=== PATIENT | male | born 1990 | race Two or more races ===

== ENCOUNTER 2018-08-12 17:42 | Emergency (ER) | payer BC, OTHER ==
[~2018-08-12] VITALS: Ht 170.2 cm; Wt 70.3 kg
--- NOTE | 2018-08-12 17:57 | NUR ---
PT A/OX4, PRESENTS TO THE ER C/O GENERALIZED BODY SKIN RASH SINCE LAST NIGHT. UPON ASSESSMENT, GENERALIZED RED BODY RASH NOTED ON BLE, CHEST, ABD. PT REPORTS ITCHINESS AT RASH SITES. VSS. PT DENIES C/P, SOB, N/V/D, DIZZINESS, HEADACHE.
--- NOTE | 2018-08-12 18:50 | NUR ---
JIM SAENZ AT BEDSIDE FOR MSE.
--- NOTE | 2018-08-12 19:07 | NUR ---
SHIFT REPORT GIVEN TO GUSTAVO COPPOLA.
--- NOTE | 2018-08-12 19:12 | NUR ---
Recieved report from Hector COPPOLA, assumed care of pt.,
[2018-08-12] MEDS ORDERED: DEXAMETHASONE SOD PHOSPHATE 4 MG INJ IM ONE (19:15)
[2018-08-12] MEDS ORDERED: diphenhydrAMINE 50 MG CAPSULE PO ONE (19:15)
[2018-08-12] MEDS ORDERED: DEXAMETHASONE SOD PHOSPHATE 4 MG INJ ONE (19:17)
[2018-08-12] MEDS ORDERED: diphenhydrAMINE 50 MG CAPSULE ONE (19:17)
--- NOTE | 2018-08-12 19:25 | NUR ---
Patient discharged to home in stable conditon. Written and verbal after care instructions given. Patient verbalizes understanding of instructions. Pt. d/c w/ prescription per MD order, d/c papers signed, all belongings w/ pt., ID band removed, ambulated off unit w/ steady gait, left in private vehicle, NAD
== END 2018-08-12 19:27 | disposition home or self-care (01) ==
LOC: ER 17:45
DX: L50.9 Urticaria, unspecified (principal)
CPT/HCPCS: 96372; 99283; J1100; Q0163; A4663

== ENCOUNTER 2018-12-01 14:54 | Emergency (ER) | payer MEDICAID ==
[~2018-12-01] VITALS: Ht 170.2 cm; Wt 62.6 kg
--- NOTE | 2018-12-01 15:10 | NUR ---
JIM SAENZ AT BEDSIDE FOR MSE.
[2018-12-01] MEDS ORDERED: BENZONATATE 100 MG CAPSULE ONE (15:14)
[2018-12-01] MEDS ORDERED: BENZONATATE 100 MG CAPSULE PO ONE (15:15)
[2018-12-01 15:28] LABS: BASOPHILS % (AUTO) 0.2 % (0.0-2.0); EOSINOPHILS # (AUTO) 0.5 K/uL (0.0-0.7); EOSINOPHILS % (AUTO) 6.2 % (0.0-7.0); HEMATOCRIT 30.7 % (36.7-47.1); HEMOGLOBIN 10.5 g/dL (12.5-16.3); LYMPHOCYTES # (AUTO) 1.4 K/uL (20.0-40.0); LYMPHOCYTES % (AUTO) 17.5 % (20.5-51.5); MEAN CORPUSCULAR HEMOGLOBIN 33.7 uug (23.8-33.4); MEAN CORPUSCULAR HGB CONC 34 g/dL (32.5-36.3); MEAN CORPUSCULAR VOLUME 98.5 fL (73.0-96.2); MONOCYTES # (AUTO) 0.8 K/uL (2.0-10.0); MONOCYTES % (AUTO) 10.5 % (0.0-11.0); NEUTROPHILS # (AUTO) 5.1 K/uL (1.8-8.9); NEUTROPHILS % (AUTO) 65.6 % (38.5-71.5); PLATELET COUNT (AUTO) 359 K/uL (152-348); RED BLOOD CELL COUNT(AUTO) 3.12 MIL/uL (4.06-5.63); WHITE BLOOD COUNT (AUTO) 7.8 K/uL (3.6-10.2)
[2018-12-01 15:36] LABS: POTASSIUM 3.4 mmol/L (3.5-5.1)
[2018-12-01 15:42] LABS: BILIRUBIN,DIRECT 0.1 mg/dL (0.0-0.2); BILIRUBIN,TOTAL 0.3 mg/dL (0.2-1.0); TOTAL PROTEIN, SERUM 9.4 g/dL (6.4-8.2)
[2018-12-01 15:46] LABS: *BILIRUBIN,URIN NEGATIVE (NEGATIVE); *BLOOD, URINE 1+ (NEGATIVE); *CLARITY,URINE CLEAR (CLEAR); *COLOR,URINE YELLOW (YELLOW); *KETONES,URINE TRACE (NEGATIVE); *UROBILINOGEN,URINE 0.2 E.U./dl (NORMAL); LEUKOCYTE ESTERASE ,URINE NEGATIVE (NEGATIVE); NITRITE, URINE NEGATIVE (NEGATIVE); UGLUCOSE NEGATIVE (NEGATIVE)
[2018-12-01 15:56] LABS: MUCUS,URINE MANY /LPF (0-FEW); WBC,URINE 0-3 /HPF (0-3)
--- NOTE | 2018-12-01 16:14 | NUR ---
JIM SAENZ AT BEDSIDE FOR PT UPDATE.
[2018-12-01 16:25] LABS: BAND % (MANUAL) 10 % (0-10); EOSINOPHILS % (MANUAL) 7 % (0-8); LYMPHOCYTES % (MANUAL) 14 % (20-40); METAMYELOCYTES % 4 % (0-1); MONOCYTES % (MANUAL) 9 % (2-10); NEUTROPHILS % (MANUAL) 56 % (42-75)
--- NOTE | 2018-12-01 17:06 | NUR ---
Patient discharged to home in stable conditon. Written and verbal after care instructions given. Patient verbalizes understanding of instructions. ALL BELONGINGS W/ PT. PT SELF-AMBULATED W/O DIFFICULTY.
[2018-12-01 17:07] VITALS: BP 121/71
== END 2018-12-01 17:08 | disposition home or self-care (01) ==
LOC: ER 14:54
DX: R31.29 Other microscopic hematuria (principal); J20.9 Acute bronchitis, unspecified
CPT/HCPCS: 36415; 76770; 85025; A4663

== ENCOUNTER 2019-08-24 09:29 | Emergency (ER) | payer MEDICAID, OTHER ==
[~2019-08-24] VITALS: Ht 170.2 cm; Wt 69.4 kg
--- NOTE | 2019-08-24 09:40 | NUR ---
PT IS IN ROOM #2B. DR FRIEDMAN EVALUATED THE PT.
[2019-08-24] MEDS ORDERED: SODIUM BICARBONATE 4.2 % (NEUT) 5 ML VIAL TP ONE (09:45)
[2019-08-24] MEDS ORDERED: LIDOCAINE HCL 2% 20 ML VIAL TP ONE (09:45)
[2019-08-24] MEDS ORDERED: LET TOPICAL SOLUTION 8 ML UDC TP ONE (09:45)
[2019-08-24] MEDS ORDERED: SODIUM BICARBONATE 4.2 % (NEUT) 5 ML VIAL ONE (09:50)
[2019-08-24] MEDS ORDERED: LET TOPICAL SOLUTION 8 ML UDC ONE (09:51)
[2019-08-24] MEDS ORDERED: LIDOCAINE HCL 2% 20 ML VIAL ONE (09:51)
--- NOTE | 2019-08-24 10:58 | NUR ---
PT WAS D/C'd TO HOME. D/C INSTRUCTIONS GIVEN TO THE PT BY DR FRIEDMAN.
[2019-08-24 10:59] VITALS: BP 135/78
== END 2019-08-24 11:00 | disposition home or self-care (01) ==
LOC: ER 09:29
DX: L02.214 Cutaneous abscess of groin (principal)
CPT/HCPCS: 10060; 99282; J3490 ×2; A4217; A4663

== ENCOUNTER 2019-08-29 12:00 | Emergency (ER) | payer MEDICAID, OTHER ==
[~2019-08-29] VITALS: Ht 170.2 cm; Wt 68.0 kg
[2019-08-29 12:24] VITALS: BP 115/70
--- NOTE | 2019-08-29 12:24 | NUR ---
Patient discharged to home in stable conditon. Written and verbal after care instructions given. Patient verbalizes understanding of instructions. all belongings w/ pt. pt self-ambulated w/o difficulty.
== END 2019-08-29 12:25 | disposition home or self-care (01) ==
LOC: ER 12:00
DX: L02.214 Cutaneous abscess of groin (principal)
CPT/HCPCS: A4663

== ENCOUNTER 2019-09-25 10:40 | Emergency (ER) | payer OTHER ==
[~2019-09-25] VITALS: Ht 170.2 cm; Wt 70.3 kg
--- NOTE | 2019-09-25 10:52 | NUR ---
Dr Mckenzie at the bedside for MSE.
[2019-09-25] MEDS ORDERED: ONDANSETRON ODT 4 MG TAB.RAPDIS ONE (10:57)
[2019-09-25] MEDS ORDERED: ONDANSETRON ODT 4 MG TAB.RAPDIS SL ONE (11:00)
--- NOTE | 2019-09-25 11:05 | NUR ---
Pt out of ER for CT scan.
--- NOTE | 2019-09-25 11:16 | NUR ---
Pt back from CT scan, states nauea is better.
[2019-09-25 11:32] LABS: BASOPHILS # (AUTO) 0.1 K/uL (0.0-8.0); BASOPHILS % (AUTO) 0.5 % (0.0-2.0); EOSINOPHILS % (AUTO) 0.1 % (0.0-7.0); HEMATOCRIT 44.9 % (36.7-47.1); HEMOGLOBIN 15.2 g/dL (12.5-16.3); LYMPHOCYTES # (AUTO) 1.4 K/uL (20.0-40.0); LYMPHOCYTES % (AUTO) 13.9 % (20.5-51.5); MEAN CORPUSCULAR HEMOGLOBIN 34.6 uug (23.8-33.4); MEAN CORPUSCULAR HGB CONC 34 g/dL (32.5-36.3); MEAN CORPUSCULAR VOLUME 101.9 fL (73.0-96.2); MONOCYTES # (AUTO) 0.6 K/uL (2.0-10.0); MONOCYTES % (AUTO) 5.6 % (0.0-11.0); NEUTROPHILS # (AUTO) 8.1 K/uL (1.8-8.9); NEUTROPHILS % (AUTO) 79.9 % (38.5-71.5); PLATELET COUNT (AUTO) 403 K/uL (152-348); RED BLOOD CELL COUNT(AUTO) 4.41 MIL/uL (4.06-5.63); WHITE BLOOD COUNT (AUTO) 10.2 K/uL (3.6-10.2)
[2019-09-25 11:42] LABS: BILIRUBIN,DIRECT 0.2 mg/dL (0.0-0.2); BILIRUBIN,TOTAL 0.7 mg/dL (0.2-1.0); CREATININE 1.1 mg/dL (0.6-1.3); TOTAL PROTEIN, SERUM 8.5 g/dL (6.4-8.2)
[2019-09-25 11:46] LABS: POTASSIUM 3.9 mmol/L (3.5-5.1)
--- NOTE | 2019-09-25 12:02 | NUR ---
Pt able to tolorate Po intake.
[2019-09-25 12:25] VITALS: BP 125/89
--- NOTE | 2019-09-25 12:27 | NUR ---
Patient discharged to home in stable condition. Written and verbal after care instructions given. Patient verbalizes understanding of instructions. Stressed follow up or return to ER for worsening s/s.
== END 2019-09-25 12:26 | disposition home or self-care (01) ==
LOC: ER 10:40
DX: R10.32 Left lower quadrant pain (principal); Q63.2 Ectopic kidney; R11.0 Nausea; Z98.890 Other specified postprocedural states
CPT/HCPCS: 83690; 85025; A4663; J7030; Q0162

== ENCOUNTER 2020-01-09 07:57 | Emergency (ER) | payer OTHER ==
[~2020-01-09] VITALS: Ht 170.2 cm; Wt 70.3 kg
--- NOTE | 2020-01-09 08:02 | NUR ---
JIM SAENZ at bedside for MSE.
[2020-01-09 08:08] VITALS: BP 136/64
== END 2020-01-09 08:08 | disposition home or self-care (01) ==
LOC: ER 07:57
DX: L02.02 Furuncle of face (principal); B95.8 Unspecified staphylococcus as the cause of diseases classified elsewhere; L03.211 Cellulitis of face
CPT/HCPCS: A4663

== ENCOUNTER 2020-01-11 06:54 | Emergency (ER) | payer OTHER ==
[~2020-01-11] VITALS: Ht 175.3 cm; Wt 72.6 kg
--- NOTE | 2020-01-11 07:27 | NUR ---
PT WAS EVALUATED BY DR FRIEDMAN. PT WAS D/C'd TO HOME. D/C INSTRUCTIONS GIVEN TO THE PT BY DR FRIEDMAN.
[2020-01-11 07:28] VITALS: BP 132/78
[2020-01-12] MEDS ORDERED: CEPH-570 PO (12:26)
[2020-01-12] MEDS ORDERED: SULF1TAB48 PO (12:26)
== END 2020-01-11 07:29 | disposition home or self-care (01) ==
LOC: ER 06:57
DX: L02.01 Cutaneous abscess of face (principal)
CPT/HCPCS: A4663

== ENCOUNTER 2020-01-12 12:14 | Emergency (ER) | payer OTHER ==
[~2020-01-12] VITALS: Ht 175.3 cm; Wt 68.0 kg
[2020-01-12] MEDS ORDERED: CEPH-570 PO (12:26)
[2020-01-12] MEDS ORDERED: SULF1TAB48 PO (12:26)
[2020-01-12] MEDS ORDERED: IV NORMAL SALINE 1000 ML BAG IV ONE (13:00)
[2020-01-12] MEDS ORDERED: diphenhydrAMINE 50 MG/1 ML VIAL IV ONE (13:00)
[2020-01-12] MEDS ORDERED: methylPREDNISolone SOD SUCC 125 MG/2 ML VIAL IV ONE (13:00)
[2020-01-12] MEDS ORDERED: FAMOTIDINE. 20 MG/2 ML VIAL IV ONE ×2 (13:00→13:14)
[2020-01-12 13:13] LABS: BASOPHILS % (AUTO) 0.5 % (0.0-2.0); EOSINOPHILS # (AUTO) 0.1 K/uL (0.0-0.7); EOSINOPHILS % (AUTO) 0.8 % (0.0-7.0); HEMATOCRIT 41.8 % (36.7-47.1); HEMOGLOBIN 14.6 g/dL (12.5-16.3); LYMPHOCYTES # (AUTO) 1.8 K/uL (20.0-40.0); LYMPHOCYTES % (AUTO) 18.7 % (20.5-51.5); MEAN CORPUSCULAR HEMOGLOBIN 35.4 uug (23.8-33.4); MEAN CORPUSCULAR HGB CONC 35 g/dL (32.5-36.3); MEAN CORPUSCULAR VOLUME 101.6 fL (73.0-96.2); MONOCYTES # (AUTO) 0.7 K/uL (2.0-10.0); MONOCYTES % (AUTO) 7.1 % (0.0-11.0); NEUTROPHILS # (AUTO) 7.1 K/uL (1.8-8.9); NEUTROPHILS % (AUTO) 72.9 % (38.5-71.5); PLATELET COUNT (AUTO) 368 K/uL (152-348); RED BLOOD CELL COUNT(AUTO) 4.11 MIL/uL (4.06-5.63); WHITE BLOOD COUNT (AUTO) 9.8 K/uL (3.6-10.2)
[2020-01-12] MEDS ORDERED: methylPREDNISolone SOD SUCC 125 MG/2 ML VIAL ONE (13:14)
[2020-01-12] MEDS ORDERED: diphenhydrAMINE 50 MG/1 ML VIAL ONE (13:14)
--- NOTE | 2020-01-12 13:19 | NUR ---
while at bedside rachna with pushing all the meds, slow ivp, witnessed pt blinking eyelids fasthead tilted to the right side for less than a minute. pt said " I dont know what happened." pt deneis having seizures before. notified, orders recieved. Addendum: 01/12/20 at 1345 by VANE correction: finished
[2020-01-12 13:23] LABS: CREATININE 1.4 mg/dL (0.6-1.3); POTASSIUM 4.6 mmol/L (3.5-5.1)
[2020-01-12 13:28] LABS: BILIRUBIN,DIRECT 0.2 mg/dL (0.0-0.2); BILIRUBIN,TOTAL 0.7 mg/dL (0.2-1.0); TOTAL PROTEIN, SERUM 8.4 g/dL (6.4-8.2)
[2020-01-12] MEDS ORDERED: IOHEXOL 300MG/ML 100 ML INFUS..BTL ONE (13:40)
[2020-01-12] MEDS ORDERED: SWABABLE VALVE TRANSFER SET EA MC ONE (13:40)
[2020-01-12] MEDS ORDERED: IV NORMAL SALINE 250 ML IV ONE (13:40)
--- NOTE | 2020-01-12 13:51 | NUR ---
pt transfered to ct in stable condition.
--- NOTE | 2020-01-12 18:06 | NUR ---
Patient discharged to home in stable condition. Written and verbal after care instructions given. Patient verbalizes understanding of instructions. Stressed follow up or return to ER for worsening s/s.pt walks in steady gait. pt not driving. pt remained calm and comfortable the whole er stay.
[2020-01-12 18:08] VITALS: BP 121/71
== END 2020-01-12 18:08 | disposition home or self-care (01) ==
LOC: ER 12:14
DX: H02.849 Edema of unspecified eye, unspecified eyelid (principal); L29.9 Pruritus, unspecified; T36.1X5A Adverse effect of cephalosporins and other beta-lactam antibiotics, initial encounter; T36.8X5A Adverse effect of other systemic antibiotics, initial encounter; Y92.89 Other specified places as the place of occurrence of the external cause; S00.2 Other and unspecified superficial injuries of eyelid and periocular area; R55 Syncope and collapse; L03.213 Periorbital cellulitis; W57.XXXS Bitten or stung by nonvenomous insect and other nonvenomous arthropods, sequela; G93.49 Other encephalopathy
CPT/HCPCS: 36415; 70450; 71045; 80048; 80076; 84484; 85025; 87040 ×2; 93005; 96360; 96374; 96375; 99291; J1200; J2930; J3490; Q9967; 70030-TC; A4663; J7030; J7050

== ENCOUNTER 2020-03-10 19:23 | Inpatient (IN) | payer BC, OTHER ==
[~2020-03-10] VITALS: Ht 175.3 cm; Wt 72.6 kg
[~2020-03-10 19:23] MED LIST: CEPH-570 PO; SULF1TAB48 PO
--- NOTE | 2020-03-10 19:44 | NUR ---
Dr. Suggs at bedside for MSE.
[2020-03-10] MEDS ORDERED: IV NORMAL SALINE 500 ML BAG IV ONE (20:00)
[2020-03-10] MEDS ORDERED: MORPHINE SULFATE 4 MG/1 ML DISP.SYRIN IV ONE (20:00)
[2020-03-10] MEDS ORDERED: MORPHINE SULFATE 4 MG/1 ML DISP.SYRIN ONE (20:04)
[2020-03-10 20:19] LABS: BASOPHILS % (AUTO) 0.5 % (0.0-2.0); EOSINOPHILS % (AUTO) 0.2 % (0.0-7.0); HEMATOCRIT 45.2 % (36.7-47.1); HEMOGLOBIN 15.7 g/dL (12.5-16.3); LYMPHOCYTES # (AUTO) 1.4 K/uL (20.0-40.0); MEAN CORPUSCULAR HEMOGLOBIN 34.7 uug (23.8-33.4); MEAN CORPUSCULAR HGB CONC 35 g/dL (32.5-36.3); MEAN CORPUSCULAR VOLUME 99.8 fL (73.0-96.2); MONOCYTES # (AUTO) 0.6 K/uL (2.0-10.0); MONOCYTES % (AUTO) 6.3 % (0.0-11.0); NEUTROPHILS # (AUTO) 7.8 K/uL (1.8-8.9); PLATELET COUNT (AUTO) 386 K/uL (152-348); RED BLOOD CELL COUNT(AUTO) 4.53 MIL/uL (4.06-5.63); WHITE BLOOD COUNT (AUTO) 9.8 K/uL (3.6-10.2)
--- NOTE | 2020-03-10 20:21 | NUR ---
Pt out of ER for CT.
[2020-03-10 20:26] LABS: CREATININE 1.1 mg/dL (0.6-1.3); POTASSIUM 3.9 mmol/L (3.5-5.1)
[2020-03-10] MEDS ORDERED: IV NORMAL SALINE 250 ML IV ONE (20:26)
[2020-03-10] MEDS ORDERED: SWABABLE VALVE TRANSFER SET EA MC ONE (20:26)
[2020-03-10] MEDS ORDERED: IOHEXOL 300MG/ML 100 ML INFUS..BTL ONE (20:26)
[2020-03-10 20:40] LABS: BILIRUBIN,DIRECT 0.1 mg/dL (0.0-0.2); BILIRUBIN,TOTAL 0.4 mg/dL (0.2-1.0); TOTAL PROTEIN, SERUM 8.8 g/dL (6.4-8.2)
--- NOTE | 2020-03-10 20:48 | NUR ---
Pt back to ER from CT.
[2020-03-10] MEDS ORDERED: HYDROMORPHONE 1 MG/1 ML DISP.SYRIN ONE (20:59)
[2020-03-10] MEDS ORDERED: HYDROMORPHONE 1 MG/1 ML DISP.SYRIN IV ONE ×2 (21:00→21:45)
--- NOTE | 2020-03-10 21:09 | NUR ---
Called [facility] to page Elvira Gonzalez NP.
--- NOTE | 2020-03-10 21:19 | NUR ---
Dr. Suggs on panel call with Elvira Gonzalez NP. Patient accepted for admission to [facility], diagnosis: pancreatitis.
[2020-03-10] MEDS ORDERED: Z GUARD REMEDY PASTE 57 GM TUBE TOP PRN (21:45)
[2020-03-10] MEDS ORDERED: ONDANSETRON 4 MG/2 ML VIAL IV PRN (21:45)
[2020-03-10] MEDS ORDERED: MAGNESIUM HYDROXIDE 30 ML LIQUID UDC PO PRN (21:45)
[2020-03-10] MEDS ORDERED: ACETAMINOPHEN 325 MG TABLET PO PRN (21:45)
[2020-03-10] MEDS ORDERED: PANTOPRAZOLE SODIUM 40 MG VIAL IV SCH (21:45)
[2020-03-10] MEDS ORDERED: PANTOPRAZOLE SODIUM 40 MG VIAL IV ONE (21:45)
[2020-03-10] MEDS ORDERED: DOLU50TA PO (22:22)
[2020-03-10] MEDS ORDERED: EMTR1TAB13 PO (22:22)
[2020-03-10] MEDS ORDERED: TRAZ-257 PO (22:22)
--- NOTE | 2020-03-10 23:13 | NUR ---
Report given to Oneyda COPPOLA Medsurg.
[2020-03-10] MEDS ORDERED: ONDANSETRON 4 MG/2 ML VIAL ONE (23:39)
[2020-03-10] MEDS ORDERED: ONDANSETRON 4 MG/2 ML VIAL IV ONE (23:45)
--- NOTE | 2020-03-11 | NUR ---
Pt arrived on the unit at 2350 for Med surg admission due to abdominal pain, diagnosis pancreatitis. Pt is AAO x4, Vitals signs WNL, On room air, no s/s of SOB noted. No acute distress noted. Patient states 9/10 generalized abdominal pain. Assessment done. Skin is intact RAC 20 G IV intact and patent. Patient is NPO. Belonging checklist completed and placed in chart. Patient oriented to room. Call light and all personal items within patient reach. Safety measures maintained. Will continue to monitor.
[2020-03-11 00:28] VITALS: BP 138/92
[2020-03-11] MEDS ORDERED: METRONIDAZOLE 500 MG/NS 100ML 100 ML IV ONE (01:10)
[2020-03-11] MEDS: METRONIDAZOLE 500 MG/NS 100ML 500 MG in PREMIXED 1 EACH IV SCH ×3 (01:50→13:58)
--- NOTE | 2020-03-11 01:50 | NUR ---
Right AC IV 20G intact running IV antibiotic Flagyl, no adverse effects noted.
[2020-03-11] MEDS: MORPHINE SULFATE 2 MG/1 ML DISP.SYRIN IV PRN ×3 (02:18→18:18)
--- NOTE | 2020-03-11 02:29 | NUR ---
Patient complained of pain 9/10 administered morphine 0.5 mL PRN
--- NOTE | 2020-03-11 04:00 | NUR ---
Patient slept intermittently through the night.Patient persistently calls every 5 min, forgetful, needs reorientation. Bed bath completed. Patient complained of left hip pain, administered OXYIR PRN. Administered Benadryl per patient request to assist with itching. Applied z guard to lower back. Kept patient comfortable. Attended to all needs. No new changes. Safety measure maintained. Will continue to monitor and endorse report to next shift.
[2020-03-11 05:08] VITALS: BP 116/76
[2020-03-11 06:23] LABS: BASOPHILS % (AUTO) 0.2 % (0.0-2.0); EOSINOPHILS # (AUTO) 0.1 K/uL (0.0-0.7); HEMATOCRIT 42.2 % (36.7-47.1); HEMOGLOBIN 14.4 g/dL (12.5-16.3); LYMPHOCYTES # (AUTO) 2.2 K/uL (20.0-40.0); LYMPHOCYTES % (AUTO) 16.1 % (20.5-51.5); MEAN CORPUSCULAR HGB CONC 34 g/dL (32.5-36.3); MEAN CORPUSCULAR VOLUME 99.6 fL (73.0-96.2); MONOCYTES % (AUTO) 7.7 % (0.0-11.0); NEUTROPHILS # (AUTO) 10.1 K/uL (1.8-8.9); PLATELET COUNT (AUTO) 357 K/uL (152-348); RED BLOOD CELL COUNT(AUTO) 4.24 MIL/uL (4.06-5.63); WHITE BLOOD COUNT (AUTO) 13.5 K/uL (3.6-10.2)
[2020-03-11 06:41] LABS: MAGNESIUM 1.6 mg/dL (1.8-2.4); PHOSPHOROUS 3.5 mg/dL (2.5-4.9); POTASSIUM 3.6 mmol/L (3.5-5.1)
[2020-03-11 06:48] LABS: THYROID STIMULATING HORMONE 0.434 mIU/mL (0.358-3.740)
[2020-03-11] MEDS: NYSTATIN SUSPENSION 5 ML LIQUID UDC PO SCH ×3 (06:49→18:17)
[2020-03-11] MEDS: PANTOPRAZOLE SODIUM 40 MG VIAL IV SCH (10:23)
[2020-03-11] MEDS: MAGNESIUM SULFATE/D5W 100 ML IV SCH ×2 (10:23→12:08)
[2020-03-11 12:00] VITALS: BP 132/87
[2020-03-11] MEDS: EMTRICITABINE PO SCH (12:59)
[2020-03-11] MEDS: TENOFOV ALAFENAM PO SCH (12:59)
[2020-03-11] MEDS: DOLUTEGRAVIR SODIUM 50 MG PO SCH (12:59)
[2020-03-11 16:00] VITALS: BP 125/75
[2020-03-11] MEDS ORDERED: MEROPENEM 1 G in IV NORMAL SALINE 100 ML IV ONE (18:00)
[2020-03-11 18:07] LABS: *BILIRUBIN,URIN NEGATIVE (NEGATIVE); *BLOOD, URINE NEGATIVE (NEGATIVE); *CLARITY,URINE CLEAR (CLEAR); *COLOR,URINE YELLOW (YELLOW); *KETONES,URINE NEGATIVE (NEGATIVE); *UROBILINOGEN,URINE 0.2 E.U./dl (NORMAL); LEUKOCYTE ESTERASE ,URINE NEGATIVE (NEGATIVE); NITRITE, URINE NEGATIVE (NEGATIVE); UGLUCOSE NEGATIVE (NEGATIVE)
[2020-03-11] MEDS: IV D5 1/2 NS 1000 ML 1,000 ML IV PRN (18:22)
--- NOTE | 2020-03-11 19:13 | NUR ---
RN NOTES Patient resting in bed. Reports morphine helped his pain, but minimally. States pain worsens upon movement. Reminded patient of call light, ensured within patient reach, bed locked in low position with patient's belongings w/ in reach. Per patient no additional needs at this time.
[2020-03-11 20:00] VITALS: BP 114/78
[2020-03-11] MEDS: TRAZODONE 100 MG TABLET PO SCH (20:45)
--- NOTE | 2020-03-11 23:00 | NUR ---
Received report and resumed care from outgoing nurse.
[2020-03-12] MEDS: NYSTATIN SUSPENSION 5 ML LIQUID UDC PO SCH ×4 (00:03→17:04)
[2020-03-12] MEDS: MEROPENEM 1 G in IV NORMAL SALINE 100 ML IV SCH ×3 (01:19→17:06)
[2020-03-12 03:06] LABS: *BASOS 0 % (Not Estab.); *EOS 1 % (Not Estab.); *EOS ABSOLUTE 0.1 x10E3/uL (0.0-0.4); *HCT 42.4 % (37.5-51.0); *HGB 14.6 g/dL (13.0-17.7); *IMMATURE GRANULOCYTES 0.1 x10E3/uL (0.0-0.1); *IMMATURE GRANULOCYTES 1 % (Not Estab.); *LYMPHOCYTES 19 % (Not Estab.); *LYMPHOCYTES ABSOLUTE 2.6 x10E3/uL (0.7-3.1); *MCH 34.5 pg (26.6-33.0); *MCHC 34.4 g/dL (31.5-35.7); *MCV 100 fL (79-97); *MONOCYTES 6 % (Not Estab.); *MONOCYTES ABSOLUTE 0.9 x10E3/uL (0.1-0.9); *NEUTROPHILS 73 % (Not Estab.); *NEUTROPHILS ABSOLUTE 10.2 x10E3/uL (1.4-7.0); *PLT 238 x10E3/uL (150-450); *RBC 4.23 x10E6/uL (4.14-5.80); *RDW 11.9 % (11.6-15.4); *WBC 13.9 x10E3/uL (3.4-10.8)
[2020-03-12 04:00] VITALS: BP 103/66
[2020-03-12] MEDS: IV D5 1/2 NS 1000 ML 1,000 ML IV PRN ×2 (04:13→17:12)
[2020-03-12 05:59] LABS: BASOPHILS % (AUTO) 0.4 % (0.0-2.0); EOSINOPHILS # (AUTO) 0.2 K/uL (0.0-0.7); EOSINOPHILS % (AUTO) 2.4 % (0.0-7.0); HEMATOCRIT 42.5 % (36.7-47.1); HEMOGLOBIN 14.9 g/dL (12.5-16.3); LYMPHOCYTES # (AUTO) 1.2 K/uL (20.0-40.0); LYMPHOCYTES % (AUTO) 12.6 % (20.5-51.5); MEAN CORPUSCULAR HEMOGLOBIN 35.1 uug (23.8-33.4); MEAN CORPUSCULAR HGB CONC 35 g/dL (32.5-36.3); NEUTROPHILS # (AUTO) 7.3 K/uL (1.8-8.9); NEUTROPHILS % (AUTO) 74.6 % (38.5-71.5); PLATELET COUNT (AUTO) 357 K/uL (152-348); RED BLOOD CELL COUNT(AUTO) 4.25 MIL/uL (4.06-5.63); WHITE BLOOD COUNT (AUTO) 9.8 K/uL (3.6-10.2)
[2020-03-12 06:10] LABS: CREATININE 1.2 mg/dL (0.6-1.3); MAGNESIUM 2.1 mg/dL (1.8-2.4); POTASSIUM 3.9 mmol/L (3.5-5.1)
--- NOTE | 2020-03-12 06:23 | NUR ---
Shift End Report: Slept well. Kept NPO, Continue IVF as ordered, tolerated well. No complaint presented all night. Very compliant to treatment. All needs attended and met. Continue care as planned.
--- NOTE | 2020-03-12 07:30 | NUR ---
RECEIVED PATIENT IN BED WITH EYES CLOSED LOOKS COMFORTABLE ON ROOM AIR WITH NO SHORTNESS OF BREATH AT THIS TIME PATIENT IS NPO WITH IVF ORDERED INFUSING WITH NO S/S OF INFILTERATION ON SITE.CALL LIGHTS AND PERSONAL BELONGINGS ARE WITHIN EASY REACH AT THIS TIME WILL CONTINUE TO OBSERVE.
[2020-03-12 07:55] VITALS: BP 120/71
[2020-03-12] MEDS: PANTOPRAZOLE SODIUM 40 MG VIAL IV SCH (09:03)
[2020-03-12] MEDS: DOLUTEGRAVIR SODIUM 50 MG PO SCH (09:03)
[2020-03-12] MEDS: EMTRICITABINE PO SCH (09:04)
[2020-03-12] MEDS: TENOFOV ALAFENAM PO SCH (09:04)
--- NOTE | 2020-03-12 09:23 | NUR ---
PATIENT IS AWAKE ALERT AND ORIENTED DUE MEDS GIVEN AND TOLERATED WELL PATIENT REINSTRUCTED ON HIS NPO STATUS AND HE EXPRESSED UNDERSTANDING.
[2020-03-12 11:06] LABS: *HELPER T-LYMPH MARKR(CD4)ABSO 536 /uL (359-1519); *HELPER T-LYNPH MARKER CD4)% 20.6 % (30.8-58.5)
--- NOTE | 2020-03-12 13:29 | NUR ---
PATIENT SEEN AND EXAMINED BY VASHTI PROVIDER WITH NEW ORDERS PATIENT TO START CLEAR LIQUIDS TOMORROW MORNING
[2020-03-12 16:44] VITALS: BP 118/79
[2020-03-12 20:34] VITALS: BP 114/80
[2020-03-12] MEDS: TRAZODONE 100 MG TABLET PO SCH (20:54)
--- NOTE | 2020-03-12 22:00 | NUR ---
RN NOTES Received pt from day shift nurse to continue care and patient monitoring. Pt VS WNL, resting comfortably on bed with no shortness of breath or complains. Complaint with medications and not complaining of any pain. Pt's personal belongings were within reach, bed was locked and at lowest position, and call light within reach.
[2020-03-13] MEDS: NYSTATIN SUSPENSION 5 ML LIQUID UDC PO SCH ×4 (00:06→17:33)
[2020-03-13] MEDS: MEROPENEM 1 G in IV NORMAL SALINE 100 ML IV SCH ×2 (02:05→10:54)
[2020-03-13 04:50] VITALS: BP 121/74
[2020-03-13 05:06] LABS: CMV, IgG >10.00 U/mL (0.00-0.59)
--- NOTE | 2020-03-13 06:29 | NUR ---
RN NOTES Pt slept well throughout the night, was pleasant and calm, and was consistant with medication regimen. Pt VS WNL, A&OX4, room air, and no pain complaints. Pt belonging within reach, bed at lowest possible position and locked, and call light within pt reach.
[2020-03-13 07:10] LABS: CREATININE 1.1 mg/dL (0.6-1.3); POTASSIUM 3.8 mmol/L (3.5-5.1)
[2020-03-13 07:12] LABS: BASOPHILS % (AUTO) 0.3 % (0.0-2.0); EOSINOPHILS # (AUTO) 0.4 K/uL (0.0-0.7); HEMATOCRIT 40.4 % (36.7-47.1); HEMOGLOBIN 14.2 g/dL (12.5-16.3); LYMPHOCYTES # (AUTO) 1.9 K/uL (20.0-40.0); LYMPHOCYTES % (AUTO) 15.9 % (20.5-51.5); MEAN CORPUSCULAR HEMOGLOBIN 35.2 uug (23.8-33.4); MEAN CORPUSCULAR HGB CONC 35 g/dL (32.5-36.3); MEAN CORPUSCULAR VOLUME 100.1 fL (73.0-96.2); MONOCYTES # (AUTO) 1.3 K/uL (2.0-10.0); MONOCYTES % (AUTO) 10.8 % (0.0-11.0); NEUTROPHILS # (AUTO) 8.5 K/uL (1.8-8.9); PLATELET COUNT (AUTO) 370 K/uL (152-348); RED BLOOD CELL COUNT(AUTO) 4.03 MIL/uL (4.06-5.63); WHITE BLOOD COUNT (AUTO) 12.1 K/uL (3.6-10.2)
--- NOTE | 2020-03-13 08:06 | NUR ---
RN NOTES Patient sitting up in bed w/ breakfast tray. Per patient, will eat clear liquid diet presented to him after being NPO. Reports no immediate needs at this time. Patient encouraged to press call light if needs assistance. Call light and belongings w/ in reach. Bed locked in low position w/ 2 side rails up for safety. Patient reports decrease in pain and states is manageable at a 4/10 currently
[2020-03-13 08:18] VITALS: BP 111/65
[2020-03-13] MEDS: DOLUTEGRAVIR SODIUM 50 MG PO SCH (08:47)
[2020-03-13] MEDS: PANTOPRAZOLE SODIUM 40 MG VIAL IV SCH (08:47)
[2020-03-13] MEDS: TENOFOV ALAFENAM PO SCH (08:47)
[2020-03-13] MEDS: EMTRICITABINE PO SCH (08:47)
[2020-03-13 12:06] LABS: HEPATITIS A AB, IgM Negative (Negative)
[2020-03-13] MEDS: SULFAMETH/TRIMETH 800/160 MG TABLET PO SCH ×2 (12:59→21:10)
--- NOTE | 2020-03-13 15:30 | NUR ---
RN NOTES Patient sitting up in bed. Was able to eat all lunch tray and is tolerating regular diet well per patient, no nausea, vomiting or additional pain at this time after eating clear liquids for breakfast and regular diet lunch. Patient requested a snack from kitchen as well. No needs reported at this time by patient. Ensured call light and belongings within patient reach.
[2020-03-13 16:03] VITALS: BP 119/78
--- NOTE | 2020-03-13 18:38 | NUR ---
RN NOTES Patient sitting up in bed. Per patient, tolerated dinner fine and is not having any nausea. Patient reports no immediate needs at this time. Call light and belongings w/ in reach. Bed locked in low position w/ 2 side rails up for safety.
[2020-03-13 20:41] VITALS: BP 115/67
[2020-03-13] MEDS: IV D5 1/2 NS 1000 ML 1,000 ML IV PRN (21:10)
[2020-03-13] MEDS: TRAZODONE 100 MG TABLET PO SCH (21:10)
--- NOTE | 2020-03-13 21:15 | NUR ---
Received patient awake and alert in bed. A/Ox4. No signs of acute distress noted. No complaints of pain. No complaints of N/V. Patient able to tolerate regular diet. Restarted patients IVF, morning nurse did not know to continue fluids. Possible discharge in tomorrow. Safety measures initiated. Bed is low and locked, call light within reach. Will continue to monitor.
[2020-03-14] MEDS: NYSTATIN SUSPENSION 5 ML LIQUID UDC PO SCH ×2 (00:57→06:42)
[2020-03-14] MEDS: IV D5 1/2 NS 1000 ML 1,000 ML IV PRN (04:17)
[2020-03-14 04:40] VITALS: BP 107/65
[2020-03-14] MEDS ORDERED: PANTOPRAZOLE SODIUM 40 MG TABLET.DR PO SCH (07:00)
[2020-03-14 07:04] LABS: BASOPHILS # (AUTO) 0.1 K/uL (0.0-8.0); BASOPHILS % (AUTO) 0.5 % (0.0-2.0); EOSINOPHILS # (AUTO) 0.4 K/uL (0.0-0.7); EOSINOPHILS % (AUTO) 3.6 % (0.0-7.0); HEMATOCRIT 40.4 % (36.7-47.1); LYMPHOCYTES # (AUTO) 2.1 K/uL (20.0-40.0); LYMPHOCYTES % (AUTO) 19.4 % (20.5-51.5); MEAN CORPUSCULAR HEMOGLOBIN 35.1 uug (23.8-33.4); MEAN CORPUSCULAR HGB CONC 35 g/dL (32.5-36.3); MEAN CORPUSCULAR VOLUME 101.2 fL (73.0-96.2); MONOCYTES # (AUTO) 1.1 K/uL (2.0-10.0); MONOCYTES % (AUTO) 10.2 % (0.0-11.0); NEUTROPHILS # (AUTO) 7.1 K/uL (1.8-8.9); NEUTROPHILS % (AUTO) 66.3 % (38.5-71.5); PLATELET COUNT (AUTO) 375 K/uL (152-348); WHITE BLOOD COUNT (AUTO) 10.7 K/uL (3.6-10.2)
[2020-03-14 07:11] LABS: POTASSIUM 3.5 mmol/L (3.5-5.1)
--- NOTE | 2020-03-14 08:00 | NUR ---
Awake, alert, oriented x 4. Denies abdominal pain. IVF infusing
[2020-03-14 08:15] VITALS: BP_SYST 116; BP_SYST 121; BP_DIAS 63; BP_DIAS 74
[2020-03-14] MEDS: SULFAMETH/TRIMETH 800/160 MG TABLET PO SCH (09:05)
[2020-03-14] MEDS: TENOFOV ALAFENAM PO SCH (09:06)
[2020-03-14] MEDS: EMTRICITABINE PO SCH (09:06)
[2020-03-14] MEDS: DOLUTEGRAVIR SODIUM 50 MG PO SCH (09:06)
[2020-03-14] MEDS ORDERED: SULF1TAB48 PO (11:09)
--- NOTE | 2020-03-14 13:30 | NUR ---
With discharge order to home. Saline lock removed. Prescription and DC instruction given to patient, verbalized understanding. Went home per ambulatory, in fair condition, not in distress, afebrile
== END 2020-03-14 13:30 | disposition home or self-care (01) | DRG 439 ==
LOC: ER 19:29 → MEDSURG3 23:28
PROVIDERS: ADMIT Registered Nurse; ATTEND Nurse Practitioner Acute Care
DX: K85.90 Acute pancreatitis without necrosis or infection, unspecified (principal); N39.0 Urinary tract infection, site not specified; K91.2 Postsurgical malabsorption, not elsewhere classified; K29.80 Duodenitis without bleeding; D72.829 Elevated white blood cell count, unspecified; R74.01 Elevation of levels of liver transaminase levels; B96.89 Other specified bacterial agents as the cause of diseases classified elsewhere
CPT/HCPCS: 36415; 83605; 83690; 83735; 84100; 84443; 85025; 86361; 86644; 86645; 86705; 86709; 86803; 87040; 87077; 87086; C9113; G0378; J1170; J2185; J2270; J2405; J3475; J3490; J7030; J7040; J7050; Q9967

== ENCOUNTER 2023-07-14 10:12 | Emergency (ER) | payer BC, MEDICAID, OTHER ==
[~2023-07-14] VITALS: Ht 172.7 cm; Wt 70.8 kg
[~2023-07-14 10:12] MED LIST changes: +DOLU50TA PO; +EMTR1TAB13 PO; +TRAZ-257 PO
[2023-07-14] MEDS ORDERED: ONDANSETRON 4 MG/2 ML VIAL ONE (11:59)
[2023-07-14] MEDS ORDERED: MORPHINE SULFATE 4 MG/1 ML DISP.SYRIN ONE (11:59)
[2023-07-14] MEDS: ONDANSETRON 4 MG/2 ML VIAL IV ONE (12:05)
[2023-07-14] MEDS: MORPHINE SULFATE 4 MG/1 ML DISP.SYRIN IV ONE (12:07)
[2023-07-14] MEDS ORDERED: IV NORMAL SALINE 250 ML IV ONE (12:23)
[2023-07-14] MEDS ORDERED: SWABABLE VALVE TRANSFER SET EA MC ONE (12:23)
[2023-07-14] MEDS ORDERED: IOHEXOL 350 100 ML INFUS..BTL ONE (12:23)
[2023-07-14 12:37] LABS: BASOPHILS # (AUTO) 0.3 K/UL (0.0-0.2); BASOPHILS % (AUTO) 3.7 % (0.0-2.0); EOSINOPHILS % (AUTO) 0.4 % (0.0-7.0); HEMATOCRIT 41.7 % (36.7-47.1); HEMOGLOBIN 14.2 g/dL (12.5-16.3); LYMPHOCYTES % (AUTO) 36.2 % (20.5-51.5); MEAN CORPUSCULAR HEMOGLOBIN 34.2 uug (23.8-33.4); MEAN CORPUSCULAR HGB CONC 34 g/dL (32.5-36.3); MONOCYTES # (AUTO) 0.4 K/uL (0.1-1.30); MONOCYTES % (AUTO) 5.1 % (0.0-11.0); NEUTROPHILS # (AUTO) 4.5 K/uL (1.8-8.9); NEUTROPHILS % (AUTO) 54.6 % (38.5-71.5); PLATELET COUNT (AUTO) 333 K/uL (152-348); RED BLOOD CELL COUNT(AUTO) 4.17 MIL/uL (4.06-5.63); RED CELL DISTRIBUTION WIDTH 12.4 % (12.1-16.2); WHITE BLOOD COUNT (AUTO) 8.2 K/uL (3.6-10.2)
[2023-07-14 12:51] LABS: ALBUMIN 3.9 g/dL (3.4-5.0); BILIRUBIN,TOTAL 0.5 mg/dL (0.2-1.0); CALCIUM 8.8 mg/dL (8.5-10.1); POTASSIUM 3.8 mmol/L (3.5-5.1); TOTAL PROTEIN, SERUM 8.9 g/dL (6.4-8.2)
[2023-07-14 12:56] LABS: DIFFERENTIAL COMMENT 1
[2023-07-14] MEDS ORDERED: HYDROMORPHONE 1 MG/1 ML DISP.SYRIN ONE (13:25)
[2023-07-14] MEDS ORDERED: METOCLOPRAMIDE HCL 10 MG/2 ML VIAL ONE (13:26)
[2023-07-14] MEDS: HYDROMORPHONE 1 MG/1 ML DISP.SYRIN IV ONE (13:29)
[2023-07-14] MEDS: METOCLOPRAMIDE HCL 10 MG/2 ML VIAL IV ONE (13:29)
[2023-07-14] MEDS ORDERED: VALA10002 PO (13:43)
[2023-07-14] MEDS ORDERED: PRED50TA PO (13:43)
[2023-07-14 14:00] VITALS: O2SAT 99
[2023-07-14] MEDS ORDERED: OXYC-133 PO (14:03)
== END 2023-07-14 14:09 | disposition home or self-care (01) ==
LOC: ER 10:12
DX: G51.0 Bell's palsy (principal); Z98.890 Other specified postprocedural states; Z79.899 Other long term (current) drug therapy; Z88.0 Allergy status to penicillin
CPT/HCPCS: 99285; 70496; 96374; 96375; 80053; 85025; 36415; 70498; 70450; J2765; J2405; Q9967; J1170; J2270; A4606; A4663